=== PATIENT | male | born 1955 | race Caucasian/White ===

== ENCOUNTER → 2017-04-25 09:11 | Outpatient (CLI) | payer OTHER, SELFPAY ==
--- NOTE | 2017-04-25 09:56 | PCM.CR.HP2 ---
CR - History & Physical - General Arrival date:: 04/25/17 Arrival time:: 09:56 Date of Admission: 04/25/17 Referring Physician: Dr. Jonny Dave Primary Diagnosis: PCI w/status post coronary stenting at [facility] - History of Present Cardiac Event Onset Date: Enter Onset Date of cardiac illnesses in Comment field below KS:: Yes - 04/11/2017 PTCA:: Yes - 04/11/2017 Type of Symptoms:: pain in left shoulder, pain, diaphoretic and nausea. Had prior KS in 2007, 2008 and has multiple coronary stents from each event (total 8). Interventions with present event:: LHC w/ status post coronary stenting LUIS x2 to RCA, LUSI to LAD. Were there any complications?: none - Medications Home Medications: Ambulatory Orders Medication Instructions Recorded Aspirin [Aspirin, Baby] 81 mg PO DAILY@0800 04/25/17 Atorvastatin Calcium 80 mg PO 04/25/17 Carvedilol [Coreg] 12.5 mg PO BID 04/25/17 Clopidogrel Bisulfate [Clopidogrel] 75 mg PO 04/25/17 Lisinopril [Zestril] 10 mg PO DAILY 04/25/17 Nitroglycerin [Nitrostat] 0.4 mg SL X1 MDD 3 04/25/17 - Sleep Disorder Evaluation Hx of Sleep Apnea: Yes Do you snore loudly (louder than talking or can be heard through closed doors)?: Yes Do you often feel tired/ fatigued/ sleepy during daytime?: No Has anyone observed you stop breathing during sleep?: Yes History of Hypertension (for STOP score): No STOP Results: Positive Advanced Directives - Advanced Directives Power of Mix Chemist: Yes Living Will: Yes Advance Directives Information Provided: No Advance Directives on File: No - filed with the family mergers and acquisitions attorney DNR Order?:: No Past Medical History - Problems and Co-Morbidities Problems & Co-Morbidities: Smoking, Hypertension, - - hyperchholesterolemia, - Past Cardiac Illness Past Cardiac Illness: Ejection Fraction - 40%, Coronary Artery Disease, Myocardial Infarction - STEMI, Previous PCI w/Stent - 2007, 2008, 2009 5 stents; 04/11/17 LUIS x 2 to RCA, LUIS to LAD; total now of 8 stents - Other Other: Vision/Eye Problems - Cardiology Procedures/Interventions Cardiology Procedures/Interventions: Angioplasty, PCI w/Stenting, Heart Catheterization, Echocardiogram, Stress Test (regular) - 2007 at [place] - Past Surgical History Surgical History: no surgical history, - - colonoscopy, - Family History Summary Family History: Heart Disease: Maternal, Paternal, Sibling, High Cholesterol: Maternal Additional Family History: Mother high cholesterol, HEart surgery brother, heart attack maternal uncle Review of Systems - Review of Systems Hints: Right click = Denies (Slash). Left click = Reports ([place]) Review of Present Symptoms: Reports: Dizziness/Lightheadedness - first week after procedure felt a little lightheaded., Fatigue, Appetite - Normal, Appetite - Special Diet - No fat, no sodium, watching meat and dairy even more than before., Sleep - Normal. Denies: Shortness of Breath at Rest, Sexual Changes Risk Factor Assessment - Chief Complaint Chief Complaint: 62 year old male presents to [facility] rehab today under the care of Dr. Jonny Dave at [facility] following a recent STEMI and coronary stenting. Patient has extensive coroanry artery disease with previous KS and stenting procedures from 2007, 2008, 2009 and recent. - Pulse Pulse Rate: 65 - SpO2 98% room air Pulse Rhythm: Regular - Hypertension How long have you been treated?: no history of past hypertension Blood Pressure Sitting - Left Arm: 94/46 - Stress Stress: Work-related - Blood Cholesterol/Lipids Total Cholesterol (mg/dL) Goal = less than 200 mg/dL: 152 HDL Cholesterol (mg/dL) Goal = less than 40 mg/dL: 32 LDL Cholesterol (mg/dL) Goal = less than 70 mg/dL: 64 Triglycerides (mg/dL) Goal = less than 150 mg/dL: 106 - Diabetes Nutrition Referral for Diabetes: No - Obesity Height: 5 ft 6 in Weight:: 79 kg Weight in Pounds: 174.2 lbs Body Mass Index (BMI): 28.0 Nutritional Referral for Obesity: No - Physical Inactivity Physical Inactivity: None - Risk Stratification Risk Guidelines: Lowest Risk: Risk Factor for Smoking, Risk Factor for Dyslipidemia, Risk Factor for Diabetes, Risk Factor for Hypertension, Risk Factor for Depression, Moderate Risk: Risk Factor for Obesity, Highest Risk: Risk Factor for Sedentary Lifestyle - For Smoking Smoking Risk Guidelines: Smoking Low Risk: None or quit greater than 6 months ago. Smoking Moderate Risk: Smoker or quit 6 months or less ago. Smoking High Risk: Smoker - For Dyslipidemia Dyslipidemia Risk Guidelines: Low Risk: Moderate Risk: High Risk: 15-25% fat 25.1-29% fat >/= 30% fat. <7% sat fat 7-9% sat fat >9% sat fat. <150 mg chol 150-299 mg chol >/= 300 mg chol. LDL <100 LDL 100-129 LDL >/= 130. Chol/HDL ratio <5.0 Chol/HDL ratio 5.0-6.0 Chol/HDL ratio >6.0. Triglycerides <100 Triglycerides 100-149 Triglycerides >/= 150 - For Diabetes Mellitus Diabetes Risk Guidelines: Diabetes Low Risk: HgA1c <6.5% and/or FBG <120. Diabetes Moderate Risk: HgA1c 6.6-7.9% and/or FBG 120-180. Diabetes High Risk: HgA1c >/= 8% and/or FBG >180 - For Obesity/Overweight Obesity/Overweight Risk Guidelines: Obesity Low Risk: BMI <25.0. Obesity Moderate Risk: BMI 25-29.9. Obesity High Risk: BMI >/= 30.0 - For Hypertension Hypertension Risk Guidelines: Hypertension Low Risk: Systolic <120 and Diastolic <80. Hypertension Moderate Risk: Systolic 120-139 and Diastolic 80-89. Hypertension High Risk: Systolic >/= 140 and Diastolic >/= 90 - For Sedentary Lifestyle Sedentary Lifestyle Risk Guidelines: Sedentary Lifestyle Low Risk: >/= 1,500 kcal/week. Sedentary Lifestyle Moderate Risk: 700-1,499 kcal/week. Sedentary Lifestyle High Risk: < 700 kcal/week - For Depression Depression Risk Guidelines: Depression Low Risk: Not clinically depressed. Depression Moderate Risk: Mildly depressed. Depression High Risk: Clinically depressed Social History - Smoking History Smoking Status: Former smoker Years Smokin Packs Smoked per Day: 1 Hx Smoking Cessation Date: 07/12/1992 Hx Tobacco Use: No Hx Smoking Exposure: No - Alcohol Use Alcohol Usage: No - Substance Abuse Hx Substance Use: Yes - marijuana in past - Occupation Occupation (List type of work in comments):: Employed Hours worked per day:: 8 - 8-12 Returned to work on:: 04/30/17 - scheduled to go back - Hobbies, Recreation, Social Activities Hobbies: Sports, Watch TV, Other - cutting splitting wood. Recreational Activities: I am able to engage in most, but not all activities Marital Status - Status Marital Status: - Current Living Arrangements Living Environment:: Spouse - Children How many children do you have?: 3 - grown out of home Do any of your children live nearby?: Yes - 1 lives close to home other near [place] - Safety Do you feel safe in your surroundings?: Yes - Assistance Do you need any assistance at home?: none
--- NOTE | 2017-04-25 10:06 | CR.ITP_ITS ---
Exercise - Initial Assessment - Visit Date of Eval: 04/25/17 - initial evaluation - Stages of Change Stages of Change:: Action - Exercise Prescription Mode:: Treadmill, Rower, Airdyne, NuStep Angina with exercise?: No Target Heart Rate:: 112-120 - Hypertension Do any of the following apply?: Yes Resting Blood Pressure:: 94/60 - Intervention Home Exercise/Activity Goal:: Moderate Exercise 30 min/day x 5 days/wk - Education Goals:: Warm-up, RPE VERONICA Scale, S/S, Safe Exercise, Self-Monitoring - Exercise Program Goals Exercise Program Goals: Aerobic Activity >30 min Nutrition - Initial Assessment - Program Goals Nutrition Program Goals: LDL <70. Total Cholesterol <200. HDL >45. Triglycerides <150. HgbA1C <7%. BMI <25 - Visit Date of Assessment:: 04/25/17 - Stages of Change Stages of Change:: Action - Lipids Total Cholesterol (mg/dL) Goal = less than 200 mg/dL: 152 HDL Cholesterol (mg/dL) Goal = less than 45 mg/dL: 32 LDL Cholesterol (mg/dL) Goal = less than 70 mg/dL: 64 Triglycerides (mg/dL) Goal = less than 150 mg/dL: 106 - Weight Management Height: 5 ft 6 in Weight:: 79.8 kg Body Fat %:: 28.41 - Education Gave educational materials for:: Healthy eating Tobacco - Initial Assessment - Program Goals Tobacco Program Goals: Complete smoking cessation. Attend education classes. Improve Knowledge Test score - Stage of Change Stages of Change:: Action - Learning Barriers Learning Barriers: Vision - reading glasses, Ready to Learn - Family Support Do you have family support?: Yes - Intervention Individual Education/Counseling:: No Education Schedule Given:: Yes - Education Gave educational material for:: Coronary artery disease, Risk factors, Sexuality , Medical compliance, Cardiac A&P, Angina signs & symptoms Psychosocial - Initial Assess - Target Goals Target Goals: Assess presence or absence of depression. Using a valid screening tool, maximizes coping skills. Positive support system - Stages of Change Stages of Change:: Action - Psychosocial Test Tool Used:: HANDS Depression Questionnaire - Intervention PS - Interventions: Yes Attend Stress Management Classes, Yes Uses Stress Management Skills, No Referral to Mental Health, No Referral to [facility] Case Management, No Referral to Physician - Education Gave educational materials for:: Coping techniques, Signs & symptoms of depression, Stress management, Relaxation techniques - Patient/Program Goal Preventative Medication(s):: Aspirin, Clopidogrel, Statin/lipid - Assistive Devices Assistive Devices:: None Fall Risk Assessed:: Yes Patient Health Questionnaire Initial Assessment 1. Little interest or pleasure in doing things: Not at all 2. Feeling down, depressed, or hopeless: Not at all 3. Trouble falling or staying asleep, or sleeping too much: Not at all 4. Feeling tired or having little energy: Several days 5. Poor appetite or overeating: Not at all 6. Feeling bad about yourself -- or that you are a failure or have let yourself or your family down: Not at all 7. Trouble concentrating on things, such as reading the newspaper or watching television: Not at all 8. Moving or speaking so slowly that other people could have noticed. Or the opposite - being so fidgety or restless that you have been moving around a lot more than usual: Not at all 9. Thoughts that you would be better off , or of hurting yourself in some way: Not at all How difficult have these problems made it for you to do your work, take care of things at home, or get along with other people?: Not difficult at all Total Score: 1 Knowledge Test - Check your knowledge Initial The #1 cause of in the [place] each year is:: Heart disease Which of the following is a common treatment for heart disease?: All of the above The arteries that feed the heart are called:: Coronary arteries HDL cholesterol is known as the good cholesterol.: True What disease increases your risk for heart disease?: Pneumonia What food product raises blood cholesterol level the most?: Saturated fat The bad cholesterol in the blood is called:: LDL Hypertension is another word for:: High blood pressure A blood pressure reading of 148/88 is considered normal.: False Exercise will only benefit your health when your heart rate reaches a target level.: False Total Score:: 9 Self-Efficacy Initial Assessment We would like to know how confident you are in doing certain activities. Please select your confidence level for:: Select your confidence level for the following using the scale 1-10 where 1 is not at all confident and 10 is totally confident. Your score is the average of all 6 responses. Fatigue: How confident are you that you can keep the fatigue caused by your disease from interfering with the things you want to do? Select Number: 9 Physical Discomfort or Pain: How confident are you that you can keep the physical discomfort or pain of your disease from interfering with the things you want to do? Select Number: 9 Emotional Distress: How confident are you that you can keep the emotional distress caused by your disease from interfering with the things you want to do? Select Number: 9 Other Symptoms or Health Problems: How confident are you that you can keep other symptoms or health problems from interfering with the things you want to do? Select Number: 9 Different Tasks and Activities: How confident are you that you can do the different tasks and activities needed to manage your health condition so as to reduce your need to see a doctor? Select Number: 9 Medication: How confident are you that you can do things other than just taking medication to reduce how much your illness affects your everyday life? Select Number: 9 Total Score:: 9 Nutrition Survey - Nutrition Survey Instructions Scoring Instructions: Scoring is as follows: Yes = 1 points. No = 0 point. Patient score that is >/=12 is considered to be at potential nutritional risk and could benefit from a referral to a registered dietitian. - Nutrition Survey Initial Have you lost >10 lbs over the past 2 months without trying?: No Are you following a special diet at home for diabetes, low fat, or low salt?: Yes Are you interested in meeting with a dietitian for help understanding your diet? : No Do you eat less than 3 meals a day?: No Do you eat fatty meats (oglesby, sausage, ribs, etc), fried foods, desserts, large amounts of salad dressings, margarine, butter, or cheese most days?: Yes Do you have food allergies? [Enter types in comment field]: No Do you eat in restaurants more than 3 times a week?: No Do you season food with salt, seasoning salt, or garlic salt?: No Do you used canned, boxed, frozen meals, or soups, seasoning packets?: No Total Score:: 2 Cardiac Rehabilitation Goals - Cardiac Rehab Goals Cardiac Rehabilitation Goals: 1. Maintain the individual as the primary focus of care. 2. To improve the patient's quality of life. 3. Identification of cardiac risk factors and provide cardiac risk factor management. 4. Enhance the psychosocial status of the patient. 5. Reconditioning enough to allow the patient to resume customary activities. 6. Control symptoms of cardiac disease - Scale Scale for measuring improvement of personal goals: Enter appropriate number in Comments. 2 = Unchanged. 3 = Slightly Better. 4 = Moderate Improvement. 5 = Met my Goal Initial Assessment Personal Goals: 30-day Re-assessment: Improve energy level, Get back to work, or to resume activities faster, Improve muscle strength and endurance, Improve diet and eating habits (eat healthier), Control risk factors (learn risk factor modification)
--- NOTE | 2017-04-25 10:09 | CR.HP_ITS ---
CR - History & Physical - General Arrival date:: 04/25/17 Arrival time:: 09:56 Date of Admission: 04/25/17 Referring Physician: Dr. Jonny Dave Primary Diagnosis: PCI w/status post coronary stenting at [facility] - History of Present Cardiac Event Onset Date: Enter Onset Date of cardiac illnesses in Comment field below CA:: Yes - 04/11/2017 PTCA:: Yes - 04/11/2017 Type of Symptoms:: pain in left shoulder, pain, diaphoretic and nausea. Had prior CA in 2007, 2008 and has multiple coronary stents from each event (total 8 ). Interventions with present event:: LHC w/ status post coronary stenting LUIS x2 to RCA, LUIS to LAD. Were there any complications?: none - Medications Home Medications: Ambulatory Orders Medication Instructions Recorded Aspirin [Aspirin, Baby] 81 mg PO DAILY@0800 04/25/17 Atorvastatin Calcium 80 mg PO 04/25/17 Carvedilol [Coreg] 12.5 mg PO BID 04/25/17 Clopidogrel Bisulfate [Clopidogrel] 75 mg PO 04/25/17 Lisinopril [Zestril] 10 mg PO DAILY 04/25/17 Nitroglycerin [Nitrostat] 0.4 mg SL X1 MDD 3 04/25/17 - Sleep Disorder Evaluation Hx of Sleep Apnea: Yes Do you snore loudly (louder than talking or can be heard through closed doors)? : Yes Do you often feel tired/ fatigued/ sleepy during daytime?: No Has anyone observed you stop breathing during sleep?: Yes History of Hypertension (for STOP score): No STOP Results: Positive Advanced Directives - Advanced Directives Power of Telemarketing Agent: Yes Living Will: Yes Advance Directives Information Provided: No Advance Directives on File: No - filed with the family finance attorney DNR Order?:: No Past Medical History - Problems and Co-Morbidities Problems & Co-Morbidities: Smoking, Hypertension, - - hyperchholesterolemia, - Past Cardiac Illness Past Cardiac Illness: Ejection Fraction - 40%, Coronary Artery Disease, Myocardial Infarction - STEMI, Previous PCI w/Stent - 2007, 2008, 2009 5 stents ; 04/11/17 LUIS x 2 to RCA, LUIS to LAD; total now of 8 stents - Other Other: Vision/Eye Problems - Cardiology Procedures/Interventions Cardiology Procedures/Interventions: Angioplasty, PCI w/Stenting, Heart Catheterization, Echocardiogram, Stress Test (regular) - 2007 at [place] - Past Surgical History Surgical History: no surgical history, - - colonoscopy, - Family History Summary Family History: Heart Disease: Maternal, Paternal, Sibling, High Cholesterol: Maternal Additional Family History: Mother high cholesterol, HEart surgery brother, heart attack maternal uncle Review of Systems - Review of Systems Hints: Right click = Denies (Slash). Left click = Reports ([place]) Review of Present Symptoms: Reports: Dizziness/Lightheadedness - first week after procedure felt a little lightheaded., Fatigue, Appetite - Normal, Appetite - Special Diet - No fat, no sodium, watching meat and dairy even more than before., Sleep - Normal. Denies: Shortness of Breath at Rest, Sexual Changes Risk Factor Assessment - Chief Complaint Chief Complaint: 62 year old male presents to [facility] rehab today under the care of Dr. Jonny Dave at [facility] following a recent STEMI and coronary stenting. Patient has extensive coroanry artery disease with previous CA and stenting procedures from 2007, 2008, 2009 and recent. - Pulse Pulse Rate: 65 - SpO2 98% room air Pulse Rhythm: Regular - Hypertension How long have you been treated?: no history of past hypertension Blood Pressure Sitting - Left Arm: 94/46 - Stress Stress: Work-related - Blood Cholesterol/Lipids Total Cholesterol (mg/dL) Goal = less than 200 mg/dL: 152 HDL Cholesterol (mg/dL) Goal = less than 40 mg/dL: 32 LDL Cholesterol (mg/dL) Goal = less than 70 mg/dL: 64 Triglycerides (mg/dL) Goal = less than 150 mg/dL: 106 - Diabetes Nutrition Referral for Diabetes: No - Obesity Height: 5 ft 6 in Weight:: 79 kg Weight in Pounds: 174.2 lbs Body Mass Index (BMI): 28.0 Nutritional Referral for Obesity: No - Physical Inactivity Physical Inactivity: None - Risk Stratification Risk Guidelines: Lowest Risk: Risk Factor for Smoking, Risk Factor for Dyslipidemia, Risk Factor for Diabetes, Risk Factor for Hypertension, Risk Factor for Depression, Moderate Risk: Risk Factor for Obesity, Highest Risk: Risk Factor for Sedentary Lifestyle - For Smoking Smoking Risk Guidelines: Smoking Low Risk: None or quit greater than 6 months ago. Smoking Moderate Risk: Smoker or quit 6 months or less ago. Smoking High Risk: Smoker - For Dyslipidemia Dyslipidemia Risk Guidelines: Low Risk: Moderate Risk: High Risk: 15-25% fat 25.1-29% fat >/= 30% fat. <7% sat fat 7-9% sat fat >9% sat fat. <150 mg chol 150-299 mg chol >/= 300 mg chol. LDL <100 LDL 100-129 LDL >/= 130. Chol/HDL ratio <5.0 Chol/HDL ratio 5.0-6.0 Chol/HDL ratio >6.0. Triglycerides <100 Triglycerides 100-149 Triglycerides >/= 150 - For Diabetes Mellitus Diabetes Risk Guidelines: Diabetes Low Risk: HgA1c <6.5% and/or FBG <120. Diabetes Moderate Risk: HgA1c 6.6-7.9% and/or FBG 120-180. Diabetes High Risk: HgA1c >/= 8% and/or FBG >180 - For Obesity/Overweight Obesity/Overweight Risk Guidelines: Obesity Low Risk: BMI <25.0. Obesity Moderate Risk: BMI 25-29.9. Obesity High Risk: BMI >/= 30.0 - For Hypertension Hypertension Risk Guidelines: Hypertension Low Risk: Systolic <120 and Diastolic <80. Hypertension Moderate Risk: Systolic 120-139 and Diastolic 80-89. Hypertension High Risk: Systolic >/= 140 and Diastolic >/= 90 - For Sedentary Lifestyle Sedentary Lifestyle Risk Guidelines: Sedentary Lifestyle Low Risk: >/= 1 ,500 kcal/week. Sedentary Lifestyle Moderate Risk: 700-1,499 kcal/week. Sedentary Lifestyle High Risk: < 700 kcal/week - For Depression Depression Risk Guidelines: Depression Low Risk: Not clinically depressed. Depression Moderate Risk: Mildly depressed. Depression High Risk: Clinically depressed Social History - Smoking History Smoking Status: Former smoker Years Smokin Packs Smoked per Day: 1 Hx Smoking Cessation Date: 07/12/1992 Hx Tobacco Use: No Hx Smoking Exposure: No - Alcohol Use Alcohol Usage: No - Substance Abuse Hx Substance Use: Yes - marijuana in past - Occupation Occupation (List type of work in comments):: Employed Hours worked per day:: 8 - 8-12 Returned to work on:: 04/30/17 - scheduled to go back - Hobbies, Recreation, Social Activities Hobbies: Sports, Watch TV, Other - cutting splitting wood. Recreational Activities: I am able to engage in most, but not all activities Marital Status - Status Marital Status: - Current Living Arrangements Living Environment:: Spouse - Children How many children do you have?: 3 - grown out of home Do any of your children live nearby?: Yes - 1 lives close to home other near [place] - Safety Do you feel safe in your surroundings?: Yes - Assistance Do you need any assistance at home?: none
[2017-04-25 11:09] VITALS: BP 94/46; PULSE 65; BMI 28.0
[2017-04-25 11:13] VITALS: BP 94/60
== END ==
PROVIDERS: Family Provider Family Medicine; PCP Family Medicine; Visit Provider Internal Medicine Cardiovascular Disease
DX: I25.2 Old myocardial infarction (principal); Z95.5 Presence of coronary angioplasty implant and graft

== ENCOUNTER 2017-05-16 10:15 | Outpatient (RCR) | payer OTHER, SELFPAY ==
[2017-05-16 13:49] VITALS: BP 120/64; BP 146/70
--- NOTE | 2017-05-16 13:50 | CR.ITP_ITS ---
Exercise - Initial Assessment - Stages of Change Stages of Change:: Action - Exercise Prescription Mode:: Treadmill, Rower, Airdyne, NuStep Angina with exercise?: No Target Heart Rate:: 112-120 - Hypertension Do any of the following apply?: Yes - Intervention Home Exercise/Activity Goal:: Moderate Exercise 30 min/day x 5 days/wk - Education Goals:: Warm-up, RPE VERONICA Scale, S/S, Safe Exercise, Self-Monitoring - Exercise Program Goals Exercise Program Goals: Aerobic Activity >30 min Exercise - 30-day Assessment - Visit Date of Eval: 05/16/17 Session #:: 7 - Stages of Change Stages of Change:: Action - Exercise Prescription Mode:: Treadmill, Rower, Airdyne, NuStep Frequency (x/week): 3 Duration:: 30 METs - Progression: 0.5-1 MET as tolerated: 3.5 Target Heart Rate:: 112-120 max HR 121 - Hypertension Resting Blood Pressure:: 120/64 Peak Exercise Blood Pressure:: 146/70 Medication Changes:: No - Intervention Home Exercise/Activity Goal:: Sitting Time <3 hrs/day - Education Goals:: Warm-up, RPE VERONICA Scale, S/S, Safe Exercise, Self-Monitoring - Exercise Program Goals Exercise Program Goals: Aerobic Activity >30 min Exercise - Final/Discharge - Hypertension Do any of the following apply?: Yes Nutrition - Initial Assessment - Program Goals Nutrition Program Goals: LDL <70. Total Cholesterol <200. HDL >45. Triglycerides <150. HgbA1C <7%. BMI <25 - Stages of Change Stages of Change:: Action - Lipids Total Cholesterol (mg/dL) Goal = less than 200 mg/dL: 152 HDL Cholesterol (mg/dL) Goal = less than 45 mg/dL: 32 LDL Cholesterol (mg/dL) Goal = less than 70 mg/dL: 64 Triglycerides (mg/dL) Goal = less than 150 mg/dL: 106 - Weight Management Body Fat %:: 28.41 Total Score:: 2 - Education Gave educational materials for:: Healthy eating Nutrition - 30-Day Assessment - Program Goals Nutrition Program Goals: LDL <70. Total Cholesterol <200. HDL >45. Triglycerides <150. HgbA1C <7%. BMI <25 - Visit Date of Eval: 05/16/17 - session # 7 - Stages of Change Stages of Change:: Action - Lipids Has the patient seen the dietitian?: No - Diabetes Diabetes:: No Insulin: No Non-Insulin Dependent?: No - Weight Management Weight:: 77.564 kg - Intervention Referral to dietitian:: No Referral to Diabetic Clinic:: No Will attend diet classes:: Yes - Education Attended class for:: Healthy eating Nutrition - 60-Day Assessment - Program Goals Nutrition Program Goals: LDL <70. Total Cholesterol <200. HDL >45. Triglycerides <150. HgbA1C <7%. BMI <25 - Education Attended class for:: Healthy eating Nutrition - 90-Day Assessment - Program Goals Nutrition Program Goals: LDL <70. Total Cholesterol <200. HDL >45. Triglycerides <150. HgbA1C <7%. BMI <25 - Education Attended class for:: Healthy eating Nutrition - Final Assessment - Program Goals Nutrition Program Goals: LDL <70. Total Cholesterol <200. HDL >45. Triglycerides <150. HgbA1C <7%. BMI <25 - Weight Management Body Fat %:: 28.41 Total Score:: 2 Tobacco - Initial Assessment - Program Goals Tobacco Program Goals: Complete smoking cessation. Attend education classes. Improve Knowledge Test score - Stage of Change Stages of Change:: Action - Learning Barriers Learning Barriers: Vision - reading glasses, Ready to Learn Total Score:: 9 - Family Support Do you have family support?: Yes - Intervention Individual Education/Counseling:: No Education Schedule Given:: Yes - Education Gave educational material for:: Coronary artery disease, Risk factors, Sexuality , Medical compliance, Cardiac A&P, Angina signs & symptoms Tobacco - 30-Day Assessment - Program Goals Tobacco Program Goals: Complete smoking cessation. Attend education classes. Improve Knowledge Test score - Stage of Change Stages of Change:: Action - Learning Barriers Learning Barriers: Participates in education - Family Support Do you have family support?: Yes - Tobacco Use Tobacco Use: Non-smoker - Intervention Smoking Cessation Referral:: No Individual Education/Counseling:: No Education Schedule Given:: Yes - Education Attended class for:: Coronary artery disease, Risk factors, Sexuality, Medical compliance, Cardiac A&P, Angina signs & symptoms Tobacco - 60-Day Assessment - Program Goals Tobacco Program Goals: Complete smoking cessation. Attend education classes. Improve Knowledge Test score - Family Support Do you have family support?: Yes - Intervention Individual Education/Counseling:: No Education Schedule Given:: Yes - Education Attended class for:: Coronary artery disease, Risk factors, Sexuality, Medical compliance, Cardiac A&P, Angina signs & symptoms Tobacco - 90-Day Assessment - Program Goals Tobacco Program Goals: Complete smoking cessation. Attend education classes. Improve Knowledge Test score - Family Support Do you have family support?: Yes - Intervention Individual Education/Counseling:: No Education Schedule Given:: Yes - Education Attended class for:: Coronary artery disease, Risk factors, Sexuality, Medical compliance, Cardiac A&P, Angina signs & symptoms Tobacco - Final Assessment - Program Goals Tobacco Program Goals: Complete smoking cessation. Attend education classes. Improve Knowledge Test score - Learning Barriers Cardiac Knowledge Test Score:: 9 - Family Support Do you have family support?: Yes - Intervention Individual Education/Counseling:: No Education Schedule Given:: Yes Psychosocial - Initial Assess - Target Goals Target Goals: Assess presence or absence of depression. Using a valid screening tool, maximizes coping skills. Positive support system - Stages of Change Stages of Change:: Action - Psychosocial Test Tool Used:: HANDS Depression Questionnaire Self-Efficacy Score:: 9 - Intervention PS - Interventions: Yes Attend Stress Management Classes, Yes Uses Stress Management Skills, No Referral to Mental Health, No Referral to [facility] Case Management, No Referral to Physician - Education Gave educational materials for:: Coping techniques, Signs & symptoms of depression, Stress management, Relaxation techniques - Patient/Program Goal Preventative Medication(s):: Aspirin, Clopidogrel, Statin/lipid - Assistive Devices Assistive Devices:: None Fall Risk Assessed:: Yes Psychosocial - 30-Day Assess - Target Goals Target Goals: Assess presence or absence of depression. Using a valid screening tool, maximizes coping skills. Positive support system - Stages of Change Stages of Change:: Action - Psychosocial Test Tool Used:: HANDS Depression Questionnaire Self-Efficacy Score:: 9 - Intervention PS - Interventions: Yes Attend Stress Management Classes, No Referral to Mental Health, No Referral to [facility] Case Management, No Referral to Physician, No Uses Stress Management Skills - Education Attended classes for:: Coping techniques, Signs & symptoms of depression, Stress management, Relaxation techniques - Patient/Program Goal Preventative Medication(s):: Aspirin, Clopidogrel, Statin/lipid - Assistive Devices Assistive Devices:: None Fall Risk Assessed:: Yes Psychosocial - 60-Day Assess - Target Goals Target Goals: Assess presence or absence of depression. Using a valid screening tool, maximizes coping skills. Positive support system - Psychosocial Test Tool Used:: HANDS Depression Questionnaire Self-Efficacy Score:: 9 - Education Attended classes for:: Coping techniques, Signs & symptoms of depression, Stress management, Relaxation techniques - Patient/Program Goal Preventative Medication(s):: Aspirin, Clopidogrel, Statin/lipid - Assistive Devices Assistive Devices:: None Fall Risk Assessed:: Yes Psychosocial - 90-Day Assess - Target Goals Target Goals: Assess presence or absence of depression. Using a valid screening tool, maximizes coping skills. Positive support system - Psychosocial Test Tool Used:: HANDS Depression Questionnaire Self-Efficacy Score:: 9 - Education Attended classes for:: Coping techniques, Signs & symptoms of depression, Stress management, Relaxation techniques - Patient/Program Goal Preventative Medication(s):: Aspirin, Clopidogrel, Statin/lipid - Assistive Devices Assistive Devices:: None Fall Risk Assessed:: Yes Psychosocial - Final Assessmen - Target Goals Target Goals: Assess presence or absence of depression. Using a valid screening tool, maximizes coping skills. Positive support system - Psychosocial Test Tool Used:: HANDS Depression Questionnaire Self-Efficacy Score:: 9 - Patient/Program Goal Preventative Medication(s):: Aspirin, Clopidogrel, Statin/lipid - Assistive Devices Assistive Devices:: None Fall Risk Assessed:: Yes Patient Health Questionnaire 30-Day Re-eval Assessment 1. Little interest or pleasure in doing things: Not at all 2. Feeling down, depressed, or hopeless: Not at all 3. Trouble falling or staying asleep, or sleeping too much: Not at all 4. Feeling tired or having little energy: Not at all 5. Poor appetite or overeating: Not at all 6. Feeling bad about yourself -- or that you are a failure or have let yourself or your family down: Not at all 7. Trouble concentrating on things, such as reading the newspaper or watching television: Not at all 8. Moving or speaking so slowly that other people could have noticed. Or the opposite - being so fidgety or restless that you have been moving around a lot more than usual: Not at all 9. Thoughts that you would be better off , or of hurting yourself in some way: Not at all How difficult have these problems made it for you to do your work, take care of things at home, or get along with other people?: Not difficult at all Total Score: 0 Self-Efficacy 30-Day Re-eval Assessment We would like to know how confident you are in doing certain activities. Please select your confidence level for:: Select your confidence level for the following using the scale 1-10 where 1 is not at all confident and 10 is totally confident. Your score is the average of all 6 responses. Fatigue: How confident are you that you can keep the fatigue caused by your disease from interfering with the things you want to do? Select Number: 9 Physical Discomfort or Pain: How confident are you that you can keep the physical discomfort or pain of your disease from interfering with the things you want to do? Select Number: 9 Emotional Distress: How confident are you that you can keep the emotional distress caused by your disease from interfering with the things you want to do? Select Number: 9 Other Symptoms or Health Problems: How confident are you that you can keep other symptoms or health problems from interfering with the things you want to do? Select Number: 10 Different Tasks and Activities: How confident are you that you can do the different tasks and activities needed to manage your health condition so as to reduce your need to see a doctor? Select Number: 10 Medication: How confident are you that you can do things other than just taking medication to reduce how much your illness affects your everyday life? Select Number: 10 Total Score:: 9
== END 2017-05-16 23:59 ==
LOC: CR 10:15
PROVIDERS: Family Provider Family Medicine; PCP Family Medicine; Visit Provider Internal Medicine Cardiovascular Disease
DX: Z95.5 Presence of coronary angioplasty implant and graft (principal)
CPT/HCPCS: 93798

== ENCOUNTER 2017-06-13 10:15 | Outpatient (RCR) | payer OTHER, SELFPAY ==
[2017-04-25 11:09] VITALS: BMI 28.0
[2017-05-17 01:06] VITALS: BP 120/64; BP 146/70
--- NOTE | 2017-06-12 10:19 | PCM.CR.ITP ---
Exercise - Initial Assessment - Stages of Change Stages of Change:: Action - Exercise Prescription Mode:: Treadmill, Rower, Airdyne, NuStep Angina with exercise?: No Target Heart Rate:: 112-120 - Hypertension Do any of the following apply?: Yes - Intervention Home Exercise/Activity Goal:: Moderate Exercise 30 min/day x 5 days/wk - Education Goals:: Warm-up, RPE VERONICA Scale, S/S, Safe Exercise, Self-Monitoring - Exercise Program Goals Exercise Program Goals: Aerobic Activity >30 min Exercise - 30-day Assessment - Visit Date of Eval: 05/16/17 - session # 7 - Stages of Change Stages of Change:: Action - Exercise Prescription Mode:: Treadmill, Rower, Airdyne, NuStep Frequency (x/week): 3 Duration:: 30 METs - Progression: 0.5-1 MET as tolerated: 3.5 Target Heart Rate:: 112-120 max HR 121 - Intervention Home Exercise/Activity Goal:: Sitting Time <3 hrs/day - Education Goals:: Warm-up, RPE VEROINCA Scale, S/S, Safe Exercise, Self-Monitoring - Exercise Program Goals Exercise Program Goals: Aerobic Activity >30 min Exercise - 60-Day Assessment - Visit Date of Eval: 06/12/17 Session #:: 16 - Stages of Change Stages of Change:: Action - Exercise Prescription Mode:: Treadmill, Rower, Airdyne, NuStep Frequency (x/week): 3 Duration:: 30 METs: 5.5 Target Heart Rate:: 120-128 w max HR 122 - Hypertension Resting Blood Pressure:: 102/52 Peak Exercise Blood Pressure:: 162/70 Medication Changes:: No - Intervention Home Exercise/Activity Goal:: Moderate Exercise 30 min/day x 5 days/wk - Education Goals:: Warm-up, RPE VERONICA Scale, S/S, Safe Exercise, Self-Monitoring - Exercise Program Goals Exercise Program Goals: Aerobic Activity >30 min Exercise - Final/Discharge - Hypertension Do any of the following apply?: Yes Nutrition - Initial Assessment - Program Goals Nutrition Program Goals: LDL <70. Total Cholesterol <200. HDL >45. Triglycerides <150. HgbA1C <7%. BMI <25 - Stages of Change Stages of Change:: Action - Lipids Total Cholesterol (mg/dL) Goal = less than 200 mg/dL: 152 HDL Cholesterol (mg/dL) Goal = less than 45 mg/dL: 32 LDL Cholesterol (mg/dL) Goal = less than 70 mg/dL: 64 Triglycerides (mg/dL) Goal = less than 150 mg/dL: 106 - Diabetes Diabetes:: No Non-Insulin Dependent?: No - Weight Management Body Fat %:: 28.41 Total Score:: 2 - Intervention Referral to dietitian:: No Referral to Diabetic Clinic:: No Will attend diet classes:: Yes - Education Gave educational materials for:: Healthy eating Nutrition - 30-Day Assessment - Program Goals Nutrition Program Goals: LDL <70. Total Cholesterol <200. HDL >45. Triglycerides <150. HgbA1C <7%. BMI <25 - Stages of Change Stages of Change:: Action - Lipids Has the patient seen the dietitian?: No - Diabetes Diabetes:: No Insulin: No Non-Insulin Dependent?: No - Intervention Referral to dietitian:: No Referral to Diabetic Clinic:: No Will attend diet classes:: Yes - Education Attended class for:: Healthy eating Nutrition - 60-Day Assessment - Program Goals Nutrition Program Goals: LDL <70. Total Cholesterol <200. HDL >45. Triglycerides <150. HgbA1C <7%. BMI <25 - Visit Date of Eval: 06/12/17 - Stages of Change Stages of Change:: Action - Lipids Has the patient seen the dietitian?: No - Diabetes Diabetes:: No Insulin: No Non-Insulin Dependent?: No - Weight Management Weight:: 77.111 kg - Intervention Referral to dietitian:: No Referral to Diabetic Clinic:: No Will attend diet classes:: Yes - Education Attended class for:: Healthy eating Nutrition - 90-Day Assessment - Program Goals Nutrition Program Goals: LDL <70. Total Cholesterol <200. HDL >45. Triglycerides <150. HgbA1C <7%. BMI <25 - Lipids Has the patient seen the dietitian?: No - Diabetes Diabetes:: No Insulin: No Non-Insulin Dependent?: No - Intervention Referral to dietitian:: No Referral to Diabetic Clinic:: No Will attend diet classes:: Yes - Education Attended class for:: Healthy eating Nutrition - Final Assessment - Program Goals Nutrition Program Goals: LDL <70. Total Cholesterol <200. HDL >45. Triglycerides <150. HgbA1C <7%. BMI <25 - Diabetes Diabetes:: No Insulin: No Non-Insulin Dependent?: No - Weight Management Body Fat %:: 28.41 Total Score:: 2 - Intervention Referral to dietitian:: No Referral to Diabetic Clinic:: No Will attend diet classes:: Yes Tobacco - Initial Assessment - Program Goals Tobacco Program Goals: Complete smoking cessation. Attend education classes. Improve Knowledge Test score - Stage of Change Stages of Change:: Action - Learning Barriers Learning Barriers: Vision - reading glasses, Ready to Learn Total Score:: 9 - Family Support Do you have family support?: Yes - Intervention Smoking Cessation Referral:: No Individual Education/Counseling:: No Education Schedule Given:: Yes - Education Gave educational material for:: Coronary artery disease, Risk factors, Sexuality, Medical compliance, Cardiac A&P, Angina signs & symptoms Tobacco - 30-Day Assessment - Program Goals Tobacco Program Goals: Complete smoking cessation. Attend education classes. Improve Knowledge Test score - Stage of Change Stages of Change:: Action - Learning Barriers Learning Barriers: Participates in education - Family Support Do you have family support?: Yes - Tobacco Use Tobacco Use: Non-smoker - Intervention Smoking Cessation Referral:: No Individual Education/Counseling:: No Education Schedule Given:: Yes - Education Attended class for:: Coronary artery disease, Risk factors, Sexuality, Medical compliance, Cardiac A&P, Angina signs & symptoms Tobacco - 60-Day Assessment - Program Goals Tobacco Program Goals: Complete smoking cessation. Attend education classes. Improve Knowledge Test score - Stage of Change Stages of Change:: Action - Learning Barriers Learning Barriers: Participates in education - Family Support Do you have family support?: Yes - Tobacco Use Tobacco Use: Non-smoker Do you use smokeless tobacco?: No - Intervention Smoking Cessation Referral:: No Individual Education/Counseling:: No Education Schedule Given:: Yes - Education Attended class for:: Coronary artery disease, Risk factors, Sexuality, Medical compliance, Cardiac A&P, Angina signs & symptoms Tobacco - 90-Day Assessment - Program Goals Tobacco Program Goals: Complete smoking cessation. Attend education classes. Improve Knowledge Test score - Family Support Do you have family support?: Yes - Tobacco Use Tobacco Use: Non-smoker - Intervention Smoking Cessation Referral:: No Individual Education/Counseling:: No Education Schedule Given:: Yes - Education Attended class for:: Coronary artery disease, Risk factors, Sexuality, Medical compliance, Cardiac A&P, Angina signs & symptoms Tobacco - Final Assessment - Program Goals Tobacco Program Goals: Complete smoking cessation. Attend education classes. Improve Knowledge Test score - Learning Barriers Cardiac Knowledge Test Score:: 9 - Family Support Do you have family support?: Yes - Tobacco Use Tobacco Use: Non-smoker - Intervention Smoking Cessation Referral:: No Individual Education/Counseling:: No Education Schedule Given:: Yes Psychosocial - Initial Assess - Target Goals Target Goals: Assess presence or absence of depression. Using a valid screening tool, maximizes coping skills. Positive support system - Stages of Change Stages of Change:: Action - Psychosocial Test Tool Used:: HANDS Depression Questionnaire Self-Efficacy Score:: 9 - Education Gave educational materials for:: Coping techniques, Signs & symptoms of depression, Stress management, Relaxation techniques - Patient/Program Goal Preventative Medication(s):: Aspirin, Clopidogrel, Statin/lipid - Assistive Devices Assistive Devices:: None Fall Risk Assessed:: Yes Psychosocial - 30-Day Assess - Target Goals Target Goals: Assess presence or absence of depression. Using a valid screening tool, maximizes coping skills. Positive support system - Stages of Change Stages of Change:: Action - Psychosocial Test Tool Used:: HANDS Depression Questionnaire Self-Efficacy Score:: 9 - Patient/Program Goal Preventative Medication(s):: Aspirin, Clopidogrel, Statin/lipid - Assistive Devices Assistive Devices:: None Fall Risk Assessed:: Yes Psychosocial - 60-Day Assess - Target Goals Target Goals: Assess presence or absence of depression. Using a valid screening tool, maximizes coping skills. Positive support system - Stages of Change Stages of Change:: Action - Psychosocial Test Tool Used:: HANDS Depression Questionnaire Self-Efficacy Score:: 9 - Intervention PS - Interventions: Yes Attend Stress Management Classes, Yes Uses Stress Management Skills, No Referral to Mental Health, No Referral to [facility] Case Management, No Referral to Physician - Education Attended classes for:: Coping techniques, Signs & symptoms of depression, Stress management, Relaxation techniques - Patient/Program Goal Preventative Medication(s):: Aspirin, Clopidogrel, Statin/lipid - Assistive Devices Assistive Devices:: None Fall Risk Assessed:: Yes Psychosocial - 90-Day Assess - Target Goals Target Goals: Assess presence or absence of depression. Using a valid screening tool, maximizes coping skills. Positive support system - Psychosocial Test Tool Used:: HANDS Depression Questionnaire Self-Efficacy Score:: 9 - Education Attended classes for:: Coping techniques, Signs & symptoms of depression, Stress management, Relaxation techniques - Patient/Program Goal Preventative Medication(s):: Aspirin, Clopidogrel, Statin/lipid - Assistive Devices Assistive Devices:: None Fall Risk Assessed:: Yes Psychosocial - Final Assessmen - Target Goals Target Goals: Assess presence or absence of depression. Using a valid screening tool, maximizes coping skills. Positive support system - Psychosocial Test Tool Used:: HANDS Depression Questionnaire Self-Efficacy Score:: 9 - Patient/Program Goal Preventative Medication(s):: Aspirin, Clopidogrel, Statin/lipid - Assistive Devices Assistive Devices:: None Fall Risk Assessed:: Yes Patient Health Questionnaire 60-Day Re-eval Assessment 1. Little interest or pleasure in doing things: Not at all 2. Feeling down, depressed, or hopeless: Not at all 3. Trouble falling or staying asleep, or sleeping too much: Not at all 4. Feeling tired or having little energy: Not at all 5. Poor appetite or overeating: Not at all 6. Feeling bad about yourself -- or that you are a failure or have let yourself or your family down: Not at all 7. Trouble concentrating on things, such as reading the newspaper or watching television: Not at all 8. Moving or speaking so slowly that other people could have noticed. Or the opposite - being so fidgety or restless that you have been moving around a lot more than usual: Not at all 9. Thoughts that you would be better off , or of hurting yourself in some way: Not at all Total Score: 0 Self-Efficacy 60-Day Re-eval Assessment We would like to know how confident you are in doing certain activities. Please select your confidence level for:: Select your confidence level for the following using the scale 1-10 where 1 is not at all confident and 10 is totally confident. Your score is the average of all 6 responses. Fatigue: How confident are you that you can keep the fatigue caused by your disease from interfering with the things you want to do? Select Number: 9 Physical Discomfort or Pain: How confident are you that you can keep the physical discomfort or pain of your disease from interfering with the things you want to do? Select Number: 9 Emotional Distress: How confident are you that you can keep the emotional distress caused by your disease from interfering with the things you want to do? Select Number: 10 Other Symptoms or Health Problems: How confident are you that you can keep other symptoms or health problems from interfering with the things you want to do? Select Number: 10 Different Tasks and Activities: How confident are you that you can do the different tasks and activities needed to manage your health condition so as to reduce your need to see a doctor? Select Number: 10 Medication: How confident are you that you can do things other than just taking medication to reduce how much your illness affects your everyday life? Select Number: 10 Total Score:: 9
[2017-06-12 10:21] VITALS: BP 102/52; BP 162/70
== END 2017-06-13 23:59 ==
LOC: CR 10:15
PROVIDERS: Family Provider Family Medicine; PCP Family Medicine; Visit Provider Internal Medicine Cardiovascular Disease
DX: Z95.5 Presence of coronary angioplasty implant and graft (principal)
CPT/HCPCS: 93798

== ENCOUNTER 2017-06-29 10:15 | Outpatient (RCR) | payer OTHER, SELFPAY ==
[2017-06-14 00:51] VITALS: BP 102/52; BP 162/70
[2017-07-09 14:44] VITALS: BP 110/70; BP 148/80
--- NOTE | 2017-07-09 14:45 | CR.ITP_ITS ---
Exercise - Initial Assessment - Stages of Change Stages of Change:: Action - Exercise Prescription Mode:: Treadmill, Rower, Airdyne, NuStep Angina with exercise?: No Target Heart Rate:: 112-120 - Hypertension Do any of the following apply?: Yes - Intervention Home Exercise/Activity Goal:: Moderate Exercise 30 min/day x 5 days/wk - Education Goals:: Warm-up, RPE VERONICA Scale, S/S, Safe Exercise, Self-Monitoring - Exercise Program Goals Exercise Program Goals: Aerobic Activity >30 min Exercise - 30-day Assessment - Stages of Change Stages of Change:: Action - Exercise Prescription Mode:: Treadmill, Rower, Airdyne, NuStep Frequency (x/week): 3 Duration:: 30 METs - Progression: 0.5-1 MET as tolerated: 3.5 Target Heart Rate:: 112-120 max HR 121 - Intervention Home Exercise/Activity Goal:: Sitting Time <3 hrs/day - Education Goals:: Warm-up, RPE VERONICA Scale, S/S, Safe Exercise, Self-Monitoring - Exercise Program Goals Exercise Program Goals: Aerobic Activity >30 min Exercise - 60-Day Assessment - Visit Date of Eval: 06/12/17 - Stages of Change Stages of Change:: Action - Exercise Prescription Mode:: Treadmill, Rower, Airdyne, NuStep Frequency (x/week): 3 Duration:: 30 METs: 5.5 Target Heart Rate:: 120-128 w max HR 122 - Hypertension Medication Changes:: No - Intervention Home Exercise/Activity Goal:: Moderate Exercise 30 min/day x 5 days/wk - Education Goals:: Warm-up, RPE VERONICA Scale, S/S, Safe Exercise, Self-Monitoring - Exercise Program Goals Exercise Program Goals: Aerobic Activity >30 min Exercise - 90-Day Assessment - Visit Date of Eval: 06/12/17 - Stages of Change Stages of Change:: Action - Exercise Prescription Mode:: Treadmill, Rower, Airdyne, NuStep Frequency (x/week): 3 Duration:: 30 METs: 5.5 Target Heart Rate:: 120-128 w max HR 122 - Hypertension Medication Changes:: No - Intervention Home Exercise/Activity Goal:: Moderate Exercise 30 min/day x 5 days/wk - Education Goals:: Warm-up, RPE VERONICA Scale, S/S, Safe Exercise, Self-Monitoring - Exercise Program Goals Exercise Program Goals: Aerobic Activity >30 min Exercise - Final/Discharge - Visit Date of Eval: 07/09/17 - 06/04/2017-06/29/2017 Session #:: 25 - Pablo went back to work - Stages of Change Stages of Change:: Action - Exercise Prescription Mode:: Treadmill, Rower, Airdyne, NuStep Frequency (x/week): 3 Duration:: 30 METs: 6.3 Target Heart Rate:: 120-128 Max HR 136 - Hypertension Do any of the following apply?: Yes Resting Blood Pressure:: 110/70 Peak Exercise Blood Pressure:: 148/80 - Intervention Home Exercise/Activity Goal:: Sitting Time <3 hrs/day - Education Goal Progress: Goal Met - Exercise Program Goals Exercise Program Goals: Aerobic Activity >30 min, B/P <140/90 Nutrition - Initial Assessment - Program Goals Nutrition Program Goals: LDL <70. Total Cholesterol <200. HDL >45. Triglycerides <150. HgbA1C <7%. BMI <25 - Stages of Change Stages of Change:: Action - Lipids Total Cholesterol (mg/dL) Goal = less than 200 mg/dL: 152 HDL Cholesterol (mg/dL) Goal = less than 45 mg/dL: 32 LDL Cholesterol (mg/dL) Goal = less than 70 mg/dL: 64 Triglycerides (mg/dL) Goal = less than 150 mg/dL: 106 - Diabetes Diabetes:: No Non-Insulin Dependent?: No - Weight Management Body Fat %:: 28.41 Total Score:: 2 - Intervention Referral to dietitian:: No Referral to Diabetic Clinic:: No Will attend diet classes:: Yes - Education Gave educational materials for:: Healthy eating Nutrition - 30-Day Assessment - Program Goals Nutrition Program Goals: LDL <70. Total Cholesterol <200. HDL >45. Triglycerides <150. HgbA1C <7%. BMI <25 - Stages of Change Stages of Change:: Action - Lipids Has the patient seen the dietitian?: No - Diabetes Diabetes:: No Non-Insulin Dependent?: No - Intervention Referral to dietitian:: No Referral to Diabetic Clinic:: No Will attend diet classes:: Yes - Education Attended class for:: Healthy eating Nutrition - 60-Day Assessment - Program Goals Nutrition Program Goals: LDL <70. Total Cholesterol <200. HDL >45. Triglycerides <150. HgbA1C <7%. BMI <25 - Visit Date of Eval: 06/12/17 - Stages of Change Stages of Change:: Action - Lipids Has the patient seen the dietitian?: No - Diabetes Diabetes:: No Non-Insulin Dependent?: No - Intervention Referral to dietitian:: No Referral to Diabetic Clinic:: No Will attend diet classes:: Yes - Education Attended class for:: Healthy eating Nutrition - 90-Day Assessment - Program Goals Nutrition Program Goals: LDL <70. Total Cholesterol <200. HDL >45. Triglycerides <150. HgbA1C <7%. BMI <25 - Visit Date of Eval: 06/12/17 - Stages of Change Stages of Change:: Action - Lipids Has the patient seen the dietitian?: No - Diabetes Diabetes:: No Non-Insulin Dependent?: No - Intervention Referral to dietitian:: No Referral to Diabetic Clinic:: No Will attend diet classes:: Yes - Education Attended class for:: Healthy eating Nutrition - Final Assessment - Program Goals Nutrition Program Goals: LDL <70. Total Cholesterol <200. HDL >45. Triglycerides <150. HgbA1C <7%. BMI <25 - Visit Date of Eval: 07/09/17 - 06/04/2017-06/29/2017 - Stages of Change Stages of Change:: Action - Diabetes Diabetes:: No Non-Insulin Dependent?: No - Weight Management Weight:: 78.471 kg Body Fat %:: 28.41 Total Score:: 2 - Intervention Referral to dietitian:: No Referral to Diabetic Clinic:: No Will attend diet classes:: Yes - Education Education Goal Reached?: Yes Tobacco - Initial Assessment - Program Goals Tobacco Program Goals: Complete smoking cessation. Attend education classes. Improve Knowledge Test score - Stage of Change Stages of Change:: Action - Learning Barriers Learning Barriers: Vision - reading glasses, Ready to Learn Total Score:: 9 - Family Support Do you have family support?: Yes - Tobacco Use Do you use smokeless tobacco?: No - Intervention Smoking Cessation Referral:: No Individual Education/Counseling:: No Education Schedule Given:: Yes - Education Gave educational material for:: Coronary artery disease, Risk factors, Sexuality , Medical compliance, Cardiac A&P, Angina signs & symptoms Tobacco - 30-Day Assessment - Program Goals Tobacco Program Goals: Complete smoking cessation. Attend education classes. Improve Knowledge Test score - Stage of Change Stages of Change:: Action - Learning Barriers Learning Barriers: Participates in education - Family Support Do you have family support?: Yes - Tobacco Use Tobacco Use: Non-smoker Do you use smokeless tobacco?: No - Intervention Smoking Cessation Referral:: No Individual Education/Counseling:: No Education Schedule Given:: Yes - Education Attended class for:: Coronary artery disease, Risk factors, Sexuality, Medical compliance, Cardiac A&P, Angina signs & symptoms Tobacco - 60-Day Assessment - Program Goals Tobacco Program Goals: Complete smoking cessation. Attend education classes. Improve Knowledge Test score - Stage of Change Stages of Change:: Action - Learning Barriers Learning Barriers: Participates in education - Family Support Do you have family support?: Yes - Tobacco Use Tobacco Use: Non-smoker Do you use smokeless tobacco?: No - Intervention Smoking Cessation Referral:: No Individual Education/Counseling:: No Education Schedule Given:: Yes - Education Attended class for:: Coronary artery disease, Risk factors, Sexuality, Medical compliance, Cardiac A&P, Angina signs & symptoms Tobacco - 90-Day Assessment - Program Goals Tobacco Program Goals: Complete smoking cessation. Attend education classes. Improve Knowledge Test score - Stage of Change Stages of Change:: Action - Learning Barriers Learning Barriers: Participates in education - Family Support Do you have family support?: Yes - Tobacco Use Tobacco Use: Non-smoker Do you use smokeless tobacco?: No - Intervention Smoking Cessation Referral:: No Individual Education/Counseling:: No Education Schedule Given:: Yes - Education Attended class for:: Coronary artery disease, Risk factors, Sexuality, Medical compliance, Cardiac A&P, Angina signs & symptoms Tobacco - Final Assessment - Program Goals Tobacco Program Goals: Complete smoking cessation. Attend education classes. Improve Knowledge Test score - Stage of Change Stages of Change:: Action - Learning Barriers Cardiac Knowledge Test Score:: 9 - Family Support Do you have family support?: Yes - Tobacco Use Tobacco Use: Non-smoker Do you use smokeless tobacco?: No - Intervention Smoking Cessation Referral:: No Individual Education/Counseling:: No Education Schedule Given:: Yes - Education Education Goal Reached?: Yes Psychosocial - Initial Assess - Target Goals Target Goals: Assess presence or absence of depression. Using a valid screening tool, maximizes coping skills. Positive support system - Stages of Change Stages of Change:: Action - Psychosocial Test Tool Used:: HANDS Depression Questionnaire Self-Efficacy Score:: 9 - Intervention PS - Interventions: Yes Attend Stress Management Classes, Yes Uses Stress Management Skills, No Referral to Mental Health, No Referral to [facility] Case Management, No Referral to Physician - Patient/Program Goal Preventative Medication(s):: Aspirin, Clopidogrel, Statin/lipid - Assistive Devices Assistive Devices:: None Fall Risk Assessed:: Yes Psychosocial - 30-Day Assess - Target Goals Target Goals: Assess presence or absence of depression. Using a valid screening tool, maximizes coping skills. Positive support system - Stages of Change Stages of Change:: Action - Psychosocial Test Tool Used:: HANDS Depression Questionnaire Self-Efficacy Score:: 9 - Patient/Program Goal Preventative Medication(s):: Aspirin, Clopidogrel, Statin/lipid - Assistive Devices Assistive Devices:: None Fall Risk Assessed:: Yes Psychosocial - 60-Day Assess - Target Goals Target Goals: Assess presence or absence of depression. Using a valid screening tool, maximizes coping skills. Positive support system - Stages of Change Stages of Change:: Action - Psychosocial Test Tool Used:: HANDS Depression Questionnaire Self-Efficacy Score:: 9 - Patient/Program Goal Preventative Medication(s):: Aspirin, Clopidogrel, Statin/lipid - Assistive Devices Assistive Devices:: None Fall Risk Assessed:: Yes Psychosocial - 90-Day Assess - Target Goals Target Goals: Assess presence or absence of depression. Using a valid screening tool, maximizes coping skills. Positive support system - Stages of Change Stages of Change:: Action - Psychosocial Test Tool Used:: HANDS Depression Questionnaire Self-Efficacy Score:: 9 - Patient/Program Goal Preventative Medication(s):: Aspirin, Clopidogrel, Statin/lipid - Assistive Devices Assistive Devices:: None Fall Risk Assessed:: Yes Psychosocial - Final Assessmen - Target Goals Target Goals: Assess presence or absence of depression. Using a valid screening tool, maximizes coping skills. Positive support system - Stages of Change Stages of Change:: Action - Psychosocial Test Tool Used:: HANDS Depression Questionnaire Self-Efficacy Score:: 9 - Intervention PS - Interventions: Yes Attend Stress Management Classes, Yes Uses Stress Management Skills, No Referral to Mental Health, No Referral to [facility] Case Management, No Referral to Physician - Patient/Program Goal Preventative Medication(s):: Aspirin, Clopidogrel, Statin/lipid - Assistive Devices Assistive Devices:: None Fall Risk Assessed:: Yes Patient Health Questionnaire Discharge Assessment 1. Little interest or pleasure in doing things: Not at all 2. Feeling down, depressed, or hopeless: Not at all 3. Trouble falling or staying asleep, or sleeping too much: Not at all 4. Feeling tired or having little energy: Not at all 5. Poor appetite or overeating: Not at all 6. Feeling bad about yourself -- or that you are a failure or have let yourself or your family down: Not at all 7. Trouble concentrating on things, such as reading the newspaper or watching television: Not at all 8. Moving or speaking so slowly that other people could have noticed. Or the opposite - being so fidgety or restless that you have been moving around a lot more than usual: Not at all 9. Thoughts that you would be better off , or of hurting yourself in some way: Not at all How difficult have these problems made it for you to do your work, take care of things at home, or get along with other people?: Not difficult at all Total Score: 0 Self-Efficacy Discharge Assessment We would like to know how confident you are in doing certain activities. Please select your confidence level for:: Select your confidence level for the following using the scale 1-10 where 1 is not at all confident and 10 is totally confident. Your score is the average of all 6 responses. Fatigue: How confident are you that you can keep the fatigue caused by your disease from interfering with the things you want to do? Select Number: 10 Physical Discomfort or Pain: How confident are you that you can keep the physical discomfort or pain of your disease from interfering with the things you want to do? Select Number: 10 Emotional Distress: How confident are you that you can keep the emotional distress caused by your disease from interfering with the things you want to do? Select Number: 10 Other Symptoms or Health Problems: How confident are you that you can keep other symptoms or health problems from interfering with the things you want to do? Select Number: 10 Different Tasks and Activities: How confident are you that you can do the different tasks and activities needed to manage your health condition so as to reduce your need to see a doctor? Select Number: 10 Medication: How confident are you that you can do things other than just taking medication to reduce how much your illness affects your everyday life? Select Number: 10 Total Score:: 10 Cardiac Rehabilitation Goals - Cardiac Rehab Goals Cardiac Rehabilitation Goals: 1. Maintain the individual as the primary focus of care. 2. To improve the patient's quality of life. 3. Identification of cardiac risk factors and provide cardiac risk factor management. 4. Enhance the psychosocial status of the patient. 5. Reconditioning enough to allow the patient to resume customary activities. 6. Control symptoms of cardiac disease - Scale Scale for measuring improvement of personal goals: Enter appropriate number in Comments. 2 = Unchanged. 3 = Slightly Better. 4 = Moderate Improvement. 5 = Met my Goal Discharge Assessment Personal Goals: Discharge Reassessment: Participate in home exercise program, Get back to work, or to resume activities faster, Improve diet and eating habits (eat healthier)
== END 2017-07-02 10:37 | disposition home or self-care (01) ==
LOC: CR 10:15
PROVIDERS: Family Provider Family Medicine; PCP Family Medicine; Visit Provider Internal Medicine Cardiovascular Disease
DX: Z95.5 Presence of coronary angioplasty implant and graft (principal)
CPT/HCPCS: 93798

== ENCOUNTER 2017-12-18 16:17 | Emergency (ER) | payer OTHER, SELFPAY ==
[2017-12-18 16:19] VITALS: BP 130/74; PULSE 68; RESP 18; TEMP 36.2; O2SAT 99; BMI 26.6
== END 2017-12-18 17:18 | disposition left against medical advice (07) ==
LOC: ED 17:15
PROVIDERS: Emergency Provider Emergency Medicine; Family Provider Family Medicine; PCP Family Medicine
DX: T14.8XXA Other injury of unspecified body region, initial encounter (principal); Z53.21 Procedure and treatment not carried out due to patient leaving prior to being seen by health care provider

== ENCOUNTER 2023-03-08 01:18 | Emergency (ER) | payer MEDICARE, SELFPAY ==
[2023-03-08 01:19] VITALS: BP 174/96; PULSE 78; RESP 18; TEMP 35.5; O2SAT 97; BMI 32.4
--- NOTE | 2023-03-08 01:41 | RAD_ITS ---
EXAM: XR CHEST, 2 VIEWS CLINICAL INDICATION: cough cough TECHNIQUE: Frontal and lateral views of the chest. COMPARISON: No relevant prior studies available. FINDINGS: LUNGS AND PLEURAL SPACES: There is mild atelectasis in the lower lung paiz. There are no demonstrated pulmonary consolidations. No pneumothorax. No effusion. HEART: Unremarkable. Cardiac silhouette not enlarged. MEDIASTINUM: Central airways and mediastinal contour are unremarkable. BONES/JOINTS: Unremarkable. No acute fracture. SOFT TISSUES: Unremarkable. RAD/Chest PA and Lateral IMPRESSION: Mild atelectasis in lower lung paiz. No demonstrated pulmonary airspace infiltrates. Electronically Signed: Rogelio Nguyen MD at 2:35 EST Reading Location ID and State: [facility] / [place] , Service support ,
[2023-03-08] MEDS: predniSONE 20 MG Tablet 60 MG PO (01:43)
[2023-03-08 01:55] VITALS: PULSE 91; RESP 18
[2023-03-08] MEDS: Albuterol 2.5 MG/3 ML VIAL.NEB. INHALATION (01:55)
[2023-03-08] MEDS: Ipratropium/Albuterol Sulfate 3 ML AMPUL.NEB INHALATION ×2 (01:55→03:03)
--- NOTE | 2023-03-08 02:16 | CPS ---
x1 Albuterol given to pt. in ER as well
--- NOTE | 2023-03-08 03:23 | CPS ---
[0303] Pre-HR = 90, RR = 18 with slightly diminished breath sounds & LLL crackles Post-HR = 108, RR = 18 with clearer breath sounds; LLL crackles
--- NOTE | 2023-03-08 03:29 | EX.ED.DYSGE1 ---
HPI History of Present Illness Chief Complaint: Shortness of Breath Informant: patient Narrative Narrative: Patient is a 67-year-old male with reported past medical history of hyperlipidemia previous NH and COVID roughly 1 month ago. 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 He states 1 month ago he had similar symptoms and was diagnosed with COVID. States he felt he had better but then was in another hospital visiting a feeling member and then developed congestion and cough. He states that congestion and cough is been present for approximately 1 week and he is having difficulty sleeping secondary to it. He states that this evening/morning he awoke with congestion and cough which was not improving and felt like there may be potentially developing pneumonia and therefore comes to the hospital for evaluation [facility] Medical History (Updated 03/08/23 @ 05:[address] Compa Duval, DO) COVID-19 Hyperlipemia Myocardial infarction (~2017) Home Medications aspirin 81 mg chewable tablet 81 mg PO DAILY@0800 04/25/17 [History Last Taken Unknown] atorvastatin 80 mg tablet 80 mg PO QHS 04/25/17 [History Last Taken Unknown] carvedilol 12.5 mg tablet 12.5 mg PO BID 04/25/17 [History Last Taken Unknown] clopidogrel 75 mg tablet 75 mg PO DAILY 04/25/17 [History Last Taken Unknown] lisinopril 10 mg tablet 10 mg PO DAILY 04/25/17 [History Last Taken Unknown] nitroglycerin 0.4 mg sublingual tablet (Nitrostat) 0.4 mg sublingual X1 chest pain 04/25/17 [History Last Taken Unknown] albuterol sulfate 90 mcg/actuation aerosol inhaler (Ventolin HFA) 1 - 2 puff inhalation Q4H PRN PRN Wheezing #1 device 03/08/23 [Rx Last Taken Unknown] hydrocodone-homatropine 5 mg-1.5 mg/5 mL oral syrup (Hycodan (with homatropine)) 5 ml PO 4X/DAY PRN PRN cough 7 days #140 mL 03/08/23 [Rx Last Taken Unknown] prednisone 20 mg tablet 40 mg (2 x 20 mg) PO DAILY 5 days #10 tabs 03/08/23 [Rx Last Taken Unknown] Allergy/AdvReac Type Severity Reaction Status Date / Time No Known Allergies Allergy Unverified 01/15/23 09:59 Surgical History Stented coronary artery Social History Smoking Status: Never smoker ROS ROS ED Constitutional Constitutional ED: Denies chills or fever(s) ENT ENT ED: Reports rhinorrhea and sore throat Cardiovascular Cardiovascular: Denies chest pain Respiratory/Chest Respiratory/Chest: Reports cough and dyspnea Gastrointestinal Gastrointestinal: Denies abdominal pain, diarrhea, nausea or vomiting Genitourinary Genitourinary ED: Denies dysuria Musculoskeletal Musculoskeletal: Reports myalgias Integumentary Denies rash Neurologic Neurologic: Denies headache(s) Hematologic/Lymphatic Hematologic/Lymphatic: Denies easy bleeding or easy bruising EXAM Physical Exam Const Vital Signs: 03/08/23 01:19 03/08/23 01:25 03/08/23 01:55 Temperature 96 F L Temperature Source Temporal Pulse Rate 78 91 Respiratory Rate 18 18 Respiratory Effort Short of Breath Respiratory Depth Normal Respiratory Pattern Normal Normal Blood Pressure 174/96 H Blood Pressure Mean 122 Pulse Ox 97 Oxygen Delivery Method Room Air Room Air 03/08/23 03:37 Temperature Temperature Source Pulse Rate 100 Respiratory Rate 16 Respiratory Effort Respiratory Depth Respiratory Pattern Blood Pressure 154/67 H Blood Pressure Mean 96 Pulse Ox 87 Oxygen Delivery Method Room Air Positive well nourished and well developed General Appearance ED: well developed HEENT HEENT Narrative: Cobblestoning is noted in the posterior pharynx consistent with sinus drainage No airway edema or compromise; no tongue or lip swelling Eyes PERRL and EOMs intact bilaterally General Eye ED: Negative for pale conjunctiva Neck supple and no JVD Chest Wall palpation of chest normal Resp Resp Narrative: Patient is tachypneic with slight accessory muscle use. Breath sounds are diminished throughout with diffuse expiratory wheeze and faint rhonchi noted in the bilateral lower lobes. Cardio regular rate and regular rhythm Rate: other Other Details: Heart is regular rate and rhythm without murmurs rubs or gallops Radial and carotid pulses are equal and symmetric GI normal to inspection, nondistended, normoactive bowel sounds, non-tender, non-distended and no masses Auscultation: normoactive bowel sounds Palpation: soft Extremity normal to inspection Extremity Narrative: Negative Homans' sign bilaterally Neuro oriented x3, CN's II-XII intact bilaterally and no sensory deficits noted Sensorium / Orientation: alert Motor Exam: strength 5/5 throughout Psych mental status grossly normal Skin no rashes or lesions noted MDM MDM MDM Narrative Medical decision making narrative: Patient presented to the ER satting in the mid 90s on room air. However he did have increased work of breathing and he reported congestion and cough. Differential diagnosis is for upper respiratory tract infection versus pleural effusion versus pneumonia. As patient is afebrile and satting in the mid 90s I do not feel there is need for laboratory studies. A chest x-ray was obtained to rule out pneumonia versus pneumothorax versus pleural effusion. Chest x-ray showed atelectasis consistent with physical exam the fact he is not taking deep breaths. Patient was given oral steroids as well as 2 DuoNeb and 1 albuterol breathing treatment. Following the medication he did have improvement of his breath sounds and sensation of shortness of breath. At this time the patient's had improvement in his physical exam and symptoms and is not in respiratory distress. Therefore at this time I do not feel there is need for admission and patient be discharged home with symptomatic care History & Record Review Discussion w/independent historian: Patient Radiography Diagnostic Testing: Clinical Impression(s) from Imaging Studies Chest X-Ray 03/08/23 01:41 IMPRESSION: Mild atelectasis in lower lung paiz. No demonstrated pulmonary airspace infiltrates. Electronically Signed: Rogelio Nguyen MD at 2:35 EST Reading Location ID and State: [facility] / [place] , Service support , Chest x-ray as interpreted by the emergency medicine physician reveals atelectasis without acute infiltrate pneumothorax pleural effusion or widening of the mediastinum Discharge Plan Triage Chief Complaint: Shortness of Breath ED Provider: Compa Duval Dx/Rx/DC Orders Clinical Impression: Viral upper respiratory tract infection with cough, Bronchospasm, Hyperlipidemia Instructions: ED Bronchospasm (Adult), ED URI, Viral W/ Wheezing (Adult) Prescriptions: New prednisone 20 mg tablet 40 mg PO DAILY 5 Days Qty: 10 0RF albuterol sulfate [Ventolin HFA] 90 mcg/actuation HFA aerosol inhaler 1 - 2 puff inhalation Q4H PRN PRN (Reason: Wheezing) Qty: 1 0RF hydrocodone-homatropine [Hycodan (with homatropine)] 5-1.5 mg/5 mL syrup 5 ml PO 4X/DAY PRN PRN (Reason: cough) 7 Days Qty: 140 0RF No Action atorvastatin 80 MG tablet 80 mg PO QHS carvedilol 12.5 MG tablet 12.5 mg PO BID Patient Comments: doesn't feel it is needed clopidogrel 75 MG tablet 75 mg PO DAILY lisinopril 10 MG tablet 10 mg PO DAILY Patient Comments: doesn't feel it is needed nitroglycerin [Nitrostat] 0.4 MG tablet, sublingual 0.4 mg sublingual X1 MDD 3 Patient Comments: SL 1 tab under the tongue every 5 minutes x 3. aspirin 81 MG tablet,chewable 81 mg PO DAILY@0800 Primary Care Provider: Care Physician,No Primary Referrals: Care Physician,No Primary [Primary Care Provider] - Charleen Campbell VP [employer] OF [employer], VP [employer]-C [Non-Staff] - Activity Restrictions/Additional Instructions: Your x-ray did not show any type of pneumonia or fluid buildup. Your lungs are very inflamed and therefore take the steroid as directed help control this and use the inhaler to help with spasm. If you develop a fever over 100.4 or feel you are worsening despite taking your medications please return for repeat evaluation Disposition Disposition: Home, Self Care Discharge Date/Time: 03/08/23 04:09
[2023-03-08] MEDS: guaiFENesin/Codeine 5 ML UDC 10 ML PO (03:31)
[2023-03-08 03:37] VITALS: BP 154/67; PULSE 100; RESP 16; O2SAT 87
== END 2023-03-08 04:09 | disposition home or self-care (01) ==
PROVIDERS: Emergency Provider Emergency Medicine; Visit Provider Emergency Medicine
DX: J06.9 Acute upper respiratory infection, unspecified (principal); E78.5 Hyperlipidemia, unspecified; J98.01 Acute bronchospasm; Z86.16 Personal history of COVID-19
CPT/HCPCS: 71046; 94640; 99283

== ENCOUNTER 2023-03-11 21:51 | Emergency (ER) | payer MEDICARE, SELFPAY ==
[2023-03-11 21:55] VITALS: BP 186/93; PULSE 94; RESP 18; TEMP 36.2; O2SAT 97; BMI 32.8
[2023-03-11 22:14] VITALS: O2SAT 95
--- NOTE | 2023-03-11 22:14 | EKG12_ITS ---
Test Reason : SOB Blood Pressure : / mmHG Vent. Rate : 084 BPM Atrial Rate : 084 BPM P-R Int : 154 ms QRS Dur : 126 ms QT Int : 408 ms P-R-T Axes : 053 -71 019 degrees QTc Int : 482 ms Normal sinus rhythm Left axis deviation Right bundle branch block Abnormal ECG Confirmed by NOE TRUJILLO, ELISEO ([id number]), newspaper editor SANDRA MONTALVO ([id number]) on 03/13/2023 10:42:09 AM Referred By: BB Confirmed By:ELISEO LIU MD
--- NOTE | 2023-03-11 22:15 | EDS_ITS ---
HPI History of Present Illness Chief Complaint: Shortness of Breath Informant: patient Onset/Context/Timing Onset: Weeks Context: gradual Timing: Intermittent Quality: Positive for Dyspnea on exertion and Wheezing Maximum Severity: Mild Worsened by: Exertion, Lying flat and Coughing Relieved by: Rest Associated Symptoms cough Chest Pain: Positive for None Narrative Narrative: 67-year-old male complaining shortness of breath for last 3 weeks. He does have a cardiac history of CAD with stent and on Plavix. No history of DVT or PE. No recent travel, surgery or immobilization. He said he was placed on prednisone for this which did help his symptoms he is now off the prednisone. He has had some intermittent wheezing. Denies any chest pain. No pleuritic chest pain. No leg pain or swelling. No hemoptysis. He said he had COVID about a month ago went away and about a week said he felt fine he was not having shortness of breath at that time. He was more fatigued. PE Risk Factors: Negative for Cancer, OCP + Smoking + > 35, Prior DVT or PE, Recent immobilization, Recent surgery or Recent travel Prior similar symptoms: Yes Recent Illness/Hospitalization: No PFSH PFS Medical History COVID-19 Hyperlipemia Myocardial infarction (~2017) Home Medications aspirin 81 mg chewable tablet 81 mg PO DAILY@0800 04/25/17 [History Last Taken Unknown] atorvastatin 80 mg tablet 80 mg PO QHS 04/25/17 [History Last Taken Unknown] carvedilol 12.5 mg tablet 12.5 mg PO BID 04/25/17 [History Last Taken Unknown] clopidogrel 75 mg tablet 75 mg PO DAILY 04/25/17 [History Last Taken Unknown] lisinopril 10 mg tablet 10 mg PO DAILY 04/25/17 [History Last Taken Unknown] nitroglycerin 0.4 mg sublingual tablet (Nitrostat) 0.4 mg sublingual X1 chest pain 04/25/17 [History Last Taken Unknown] albuterol sulfate 90 mcg/actuation aerosol inhaler (Ventolin HFA) 1 - 2 puff inhalation Q4H PRN PRN Wheezing #1 device 03/08/23 [Rx Last Taken Unknown] hydrocodone-homatropine 5 mg-1.5 mg/5 mL oral syrup (Hycodan (with homatropine)) 5 ml PO 4X/DAY PRN PRN cough 7 days #140 mL 03/08/23 [Rx Last Taken Unknown] prednisone 20 mg tablet 40 mg (2 x 20 mg) PO DAILY 5 days #10 tabs 03/08/23 [Rx Last Taken Unknown] Allergy/AdvReac Type Severity Reaction Status Date / Time No Known Allergies Allergy Verified 03/11/23 21:53 Surgical History Stented coronary artery Social History Smoking Status: Never smoker ROS ROS ED ROS Narrative . Wheezing. Shortness of breath. No chest pain. No fever. No hemoptysis. Nonproductive cough. Review of Systems ROS Unobtainable: Denies due to encephalopathy Constitutional Constitutional ED: Denies chills or fever(s) Eyes Eyes: Denies blurry vision ENT ENT ED: Denies ear pain Cardiovascular Cardiovascular: Denies chest pain, palpitations or racing heartbeat Respiratory/Chest Respiratory/Chest: Reports cough, dyspnea, dyspnea on exertion and other Details: Wheezing. ; Denies sputum Gastrointestinal Gastrointestinal: Denies constipation, diarrhea, melena, nausea or vomiting Genitourinary Genitourinary ED: Denies dysuria or hematuria Musculoskeletal Musculoskeletal: Denies arthralgias Integumentary Denies abscess Neurologic Neurologic: Denies headache(s) Psychiatric Psychiatric: Denies anxiety Endocrine Endocrinology: Denies cold intolerance Hematologic/Lymphatic Hematologic/Lymphatic: Denies easy bleeding or easy bruising Allergic/Immunologic Allergic/Immunologic ED: Denies mouth swelling, tongue swelling or urticaria EXAM Physical Exam Narrative Exam Narrative: 67-year-old male vital signs stable afebrile. Pulse ox 97% on room air no signs hypoxia. No distress. HEENT exam unremarkable. Moist with members. Neck nontender no JVD. No lymphadenopathy. Lungs few scattered expiratory wheezes. No rales or rhonchi. Equal symmetrical. Heart regular rhythm rate about 90 no murmur. Chest wall nontender. Abdomen soft nontender. Moving all 4 extremities. Equal symmetrical radial pulses. Calves are nontender without edema nor cords. Neurologically is awake and alert with no focal motor deficits. Const Vital Signs: 03/11/23 21:55 03/11/23 22:35 03/11/23 22:14 Temperature 97.1 F L Temperature Source Temporal Pulse Rate 94 85 Respiratory Rate 18 13 Respiratory Effort Respiratory Depth Respiratory Pattern Normal Blood Pressure 186/93 H Blood Pressure Mean 124 Pulse Ox 97 95 Oxygen Delivery Method Room Air Room Air 03/11/23 22:59 Temperature Temperature Source Pulse Rate Respiratory Rate Respiratory Effort Non-Labored Respiratory Depth Normal Respiratory Pattern Tachypnea Blood Pressure Blood Pressure Mean Pulse Ox Oxygen Delivery Method Room Air Positive well nourished and well developed; Negative for cachectic, contractures or unkempt General Appearance ED: well developed and NAD; Negative for unkempt, cachectic, contractures or pallor Nutritional Appearance: Negative for cachectic HEENT Reports moist mucous membranes atraumatic; Negative for trauma or tenderness Eyes PERRL and EOMs intact bilaterally General Eye ED: Negative for pale conjunctiva or scleral icterus Neck no lymphadenopathy, supple, no meningeal signs and no JVD General: Negative for tenderness Lymph Lymphatic: Negative for other Resp normal respiratory effort and No clear to auscultation bilaterally Auscultation: wheezes Cardio regular rate, regular rhythm, S1 normal heart sound, S2 normal heart sound and no murmurs Rate: Negative for bradycardia or tachycardic Rhythm: Negative for abnormal rhythm GI non-tender, non-distended and no masses Inspection: Negative for other Auscultation: normoactive bowel sounds Palpation: soft; Negative for tender or guarding Bladder / Kidney Exam: No other Back/Spine no CVA tenderness and normal to inspection General Back: Negative for CVA tenderness Extremity normal to inspection General Extremety ED: Negative for edema or tenderness General Extremity: Negative for edema Neuro oriented x3, CN's II-XII intact bilaterally and no sensory deficits noted Sensorium / Orientation: alert, oriented to person, oriented to place and oriented to time; Negative for orientation impaired, confused, lethargic or stuporous Speech: speech normal Motor Exam: strength 5/5 throughout Psych mental status grossly normal Appearance: Negative for unkempt Attitude: No agitated Mood & Affect: Negative for depressed Thought Process: normal thought process Skin no wounds and skin turgor normal General Skin Exam: Negative for jaundice or pallor Lesions: no lesions Rashes: no rashes MDM MDM MDM Narrative Medical decision making narrative: 67-year-old male with shortness of breath or wheezing. I suspect this is secondary bronchospasm. Will undergo cardiac workup with a chest x-ray and labs. He will be treated with DuoNeb aerosol and prednisone to see if he improves. He has no significant risk factors or history of DVT or PE. No physical findings of that. No physical findings of pulmonary edema. Repeat exam patient is doing well at 11:30 PM. Feels better after his aerosol treatment steroids. He did have an inhaler called and when she is picked up. He also has steroids at home. He will continue at 40 mg a day for a week. Uses inhaler as needed. He is getting a new primary care physician on March 30 and watch with no follow-up with them or return if worse. I do not think he needs any further testing today. History & Record Review Discussion w/independent historian: Patient Additional record(s) reviewed:: Prior inpatient record, Prior outpatient record, Prior ED visit and Prior labs Lab Data Attestation: I reviewed the patient's lab results. Lab results narrative: BC is unremarkable. White count of 7. H&H 13 and 40. Platelets 251. Electrolytes show a gap of 5. BUN and creatinine are 31 and 1.35. Glucose 98. Troponin is normal at 33. No old labs available for comparison. Patient refuses chest x-ray. States he had 1 done on that was unremarkable. Did review the chest x-ray. It was from 1122. He had atelectasis. Labs: Laboratory Results - last 24 hr 03/11/23 22:30 WBC 7.6 RBC 4.33 L Hgb 13.1 Hct 40.7 MCV 94.0 MCH 30.3 MCHC 32.2 RDW Std Deviation 46.0 H RDW Coeff of [place] 13.5 Plt Count 251 MPV 9.6 Immature Gran % (Auto) 1.200 H Neut % (Auto) 56.7 Lymph % (Auto) 28.1 [place] % (Auto) 7.8 Eos % (Auto) 5.7 H Baso % (Auto) 0.5 Absolute Neuts (auto) 4.3 Absolute Lymphs (auto) 2.13 Nucleated RBC % 0 Sodium 140 Potassium 4.1 Chloride 108 H Carbon Dioxide 27.0 Anion Gap 5 BUN 31 H Creatinine 1.35 H Estim Creat Clear Calc 49.23 Est GFR (MDRD) Af Amer 68 Est GFR (MDRD) Non-Af 56 L BUN/Creatinine Ratio 23.0 H Glucose 98 Calcium 7.9 L Troponin I High Sens 33 Radiography Chest X-Ray - ED: 1 View and Read by ED Physician Rhythm Strip Rhythm Strip: Sinus Rhythm Rate: 84 Ectopy: None EKG Initial EKG: Attestation: I personally reviewed and interpreted this EKG as follows: Interpretation: Sinus Rhythm and No Acute Injury Pattern Comments: Normal sinus rhythm rate of 84 no acute signs of NC or ischemia. Right bundle branch block. Prior EKG tracings: available for review Prior: Unchanged Discharge Plan Triage Chief Complaint: Shortness of Breath ED Provider: Calin Pratt Dx/Rx/DC Orders Clinical Impression: Viral upper respiratory tract infection with cough, Bronchospasm, History of hypertension, History of coronary artery disease Instructions: ED Understanding Hypersensitivity Pneumonitis, ED Bronchospasm (Adult) Prescriptions: No Action atorvastatin 80 MG tablet 80 mg PO QHS carvedilol 12.5 MG tablet 12.5 mg PO BID Patient Comments: doesn't feel it is needed clopidogrel 75 MG tablet 75 mg PO DAILY lisinopril 10 MG tablet 10 mg PO DAILY Patient Comments: doesn't feel it is needed nitroglycerin [Nitrostat] 0.4 MG tablet, sublingual 0.4 mg sublingual X1 MDD 3 Patient Comments: SL 1 tab under the tongue every 5 minutes x 3. aspirin 81 MG tablet,chewable 81 mg PO DAILY@0800 prednisone 20 mg tablet 40 mg PO DAILY 5 Days Qty: 10 0RF albuterol sulfate [Ventolin HFA] 90 mcg/actuation HFA aerosol inhaler 1 - 2 puff inhalation Q4H PRN PRN (Reason: Wheezing) Qty: 1 0RF hydrocodone-homatropine [Hycodan (with homatropine)] 5-1.5 mg/5 mL syrup 5 ml PO 4X/DAY PRN PRN (Reason: cough) 7 Days Qty: 140 0RF Primary Care Provider: Care Physician,No Primary Referrals: Care Physician,No Primary [Primary Care Provider] - Activity Restrictions/Additional Instructions: Follow-up with your new doctor on March 30. Prednisone 40 mg a day for the next 7 days. Use your inhaler 2 puffs as needed. Return if feeling worse. Disposition Disposition: Home, Self Care
[2023-03-11] MEDS: Ipratropium/Albuterol Sulfate 3 ML AMPUL.NEB INHALATION (22:32)
[2023-03-11 22:35] VITALS: PULSE 85; RESP 13
[2023-03-11 22:43] LABS: Absolute Lymphocyte Count 2.13 X10^3/uL (0.83-4.51); Absolute Neutrophil Count 4.3 X10^3/uL (2.0-7.7); Basophil# 0.04 X10^3/uL; Basophil% 0.5 % (0-1); Eosinophil# 0.43 X10^3/uL; Eosinophils% 5.7 % (0-5); Hematocrit 40.7 % (40-54); Hemoglobin 13.1 g/dL (13.0-16.5); Lymphocyte # 2.13 X10^3/ul (0.83-4.51); Lymphocyte % 28.1 % (19-41); Mean Corp Hgb Conc 32.2 g/dL (32-36); Mean Corpuscular Hgb 30.3 pg (27.0-32.0); Mean Platelet Vol. 9.6 fl (6.2-12.0); Monocyte# 0.59 X10^3/uL; Monocyte% 7.8 % (0-10); NRBC Flagged by Analyzer 0 % (0-5); Neutrophil % 56.7 % (47-70); Platelet Count 251 K/mm3 (150-450); RBC Distribution Width CV 13.5 % (11.6-14.6); Red Blood Count 4.33 M/mm3 (4.6-6.2); White Blood Count 7.6 K/mm3 (4.4-11.0)
[2023-03-11 22:54] LABS: Anion Gap 5 (5-15); BUN 31 mg/dL (7-18); Calcium,Total 7.9 mg/dL (8.5-10.1); Chloride 108 mmol/L (98-107); Creatinine, Serum 1.35 mg/dL (0.70-1.30); EST Glomerular Filtration Rate 56 mL/min (>60); Est Glom Filt Rate - Afr Amer 68 mL/min (>60); Estimated Creatinine Clearance 49.23 ml/min; Glucose 98 mg/dL (74-106); Potassium 4.1 mmol/L (3.5-5.1); Sodium Level 140 mmol/L (136-145); Troponin-I HS 33 pg/mL (3.0-78.0)
[2023-03-11] MEDS: predniSONE 20 MG Tablet 60 MG PO (22:56)
[2023-03-11 22:59] VITALS: O2SAT 93
[2023-03-11 23:43] VITALS: BP 147/93; PULSE 83; RESP 20; RESP 22; O2SAT 95; O2SAT 97
== END 2023-03-11 23:44 | disposition home or self-care (01) ==
PROVIDERS: Emergency Provider Emergency Medicine; Visit Provider Emergency Medicine
DX: J06.9 Acute upper respiratory infection, unspecified (principal); J98.01 Acute bronchospasm; I25.10 Atherosclerotic heart disease of native coronary artery without angina pectoris; R06.02 Shortness of breath; I10 Essential (primary) hypertension; E78.5 Hyperlipidemia, unspecified; Z79.02 Long term (current) use of antithrombotics/antiplatelets; Z79.82 Long term (current) use of aspirin; Z79.899 Other long term (current) drug therapy; Z95.5 Presence of coronary angioplasty implant and graft; Z86.16 Personal history of COVID-19
CPT/HCPCS: 80048; 84484; 85025; 93005; 94640; 99284; A4216

== ENCOUNTER 2023-07-24 14:30 | Outpatient (RCR) | payer MEDICARE, SELFPAY ==
--- NOTE | 2023-06-11 12:39 | HP.PTEVAL_ITS ---
Patient's Visit Information Visit Information Visit Information: ROGELIO EMMANUEL is a 68 year old M referred to Physical Therapy by Dr. Arpita Mcdaniel MD with a diagnosis of CVA. Date of Evaluation: 06/11/23 Physical Therapist: Nura Mcgill, JEREMYT, OCS, CSCS Visit Plan Frequency: 2x /Week Duration: 4 Weeks Plan: 2x/week for 4 weeks for... 1. teach LE/postural core and UE strength using bands and db and body weight and work to I for HEP.With pics. 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 In hospital 05/21-05/24. CATscan and MRA and found 2 strokes. Had heart checkd with EKG and found declining function to20% EF. Will have heart monitor 06/17. Is on warfarin now. Not driving. Not noticing any balance or [id number] or mobility deficits. just memory and finding the right words. Retired printing. Sleeping OK. Lives with in two story house. Steps are nor problem and has railing. No falls. Basic ADLS. dress, bathroom, shower all normal. Hobbies: None. Crossword and a couplacres, slower this time of year. has bike and rwowing machine but got covid in december adn now SOB whcih they are lo oking into. No dizzyness lately. No neuropathy. has dumbbells at home and wants to learn to use them. Objective Objective: Walks into PT without gait deviations or pain, I. 600 feet today and no SOB or fatigue noted. Transfers bed and chair I. Squats and toe walk I. Steps reciprocally without rail up and down. Good balance and funcitonal mobility scores. LE strength is 4/5 in hips and knee and ankles except for hip rotations which are 3+. core strength 3+ flex and ext UE strength 4-. coordination to reciprocal toe adn heel tap is good and heel to benedict test is good. Sensation to gross light touch in LE is normal reflexes 1/3 patella adn achilles Balance/Special Test Scores Functional Gait Assessment Score: 30 % Disability: 0 CATSIB Score (Max score 120 seconds): 120 Lower Extremity Functional Score: 46 TUG Test Time Seconds: 6 30 Second Chair Rise Test Seconds: 14 Goals Goal 1:: I appropriate HEP for LE, posture, core and compliant at home Goal Time Frame: 2-4 Weeks Rehabilitation Potential Physical Therapy Diagnosis: weakness from stroke and sedentarism effecting health and function Rehabilitation Potential: Good Anticipated Interventions Patient/Client Instruction: Educate patient on: Condition and Plan of Care For the Purpose of:: To improve muscle performance and motor function and To increase tolerance to activity/condition/position Therapeutic Exercise to Include: Strength training For the Purpose of:: To improve muscle performance and motor function and To increase tolerance to activity/condition/position Text: Thank you for the opportunity to evaluate your patient. For Medicare and Medicare HMO plans, please review the plan of care and approve it. It will need to be FAXED BACK to us at [phone] for Medicare purposes. For Medicare only, by signing this I certify the plan of care. Please let me know if there are questions or concerns regarding this plan of care. Physician Signature: Date:
--- NOTE | 2023-06-11 13:56 | HP.SP.EVAL ---
Visit History Visit Info Date of Eval: 06/11/23 Visit: 1 Director [facility]: MAURIZIO History Attending Doctor: Referring Doctor: Reason for Referral: STROKE. RX HERE Medical Diagnosis: cva Date of Onset of Diagnosis: 05/21/23 Previous speech therapy: Yes Results: Pablo is a 68 year old male who was seen at for a speech and language evaluation s/p a cva on May 21. Pt's was present for the evaluation and helped provided history information. Pt was treated at [facility] for 4 days then released home. Pt has been working with his who has experience working with their son who was a tbi. 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 His highest level of education is a hs school education. Pt had 3 children, but only 2 are living (one son & one daughter). Pt saw tx in the hospital from speech. Pt's brain imaging showed a new stroke, but also past damage to the back of his brain, but they were unsure of when this happened (could have been during childhood). 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 Per pt's , he was always stoic, but he has been talking less at home & at yazdanism than before Objective Cog/Ling/Com Conversational Tasks Conversational Tasks: Mild Comments: Mild word finding issues noted during the evaluation. At times, pt had difficulty answering questions. CLQT CLQT CLQT Administered: Yes CLQT: Cognitive Linguistic Quick Test (CLQT) is a criterion - referenced assessment designed for adults between the ages of 18 and 89 with known or suspected neurological dysfuntions. The CLQT is to assess strength and weaknesses in five cognitive domains. Severity ratings are within normal limits, mild, moderate, severe deficits. The subtests are as follows: Date: 06/11/23 Attention Attention: WNL Memory Memory: Moderate Executive Functions Executive Functions: WNL Language Language: Mild Visuospatial Skills Visuospatial Skills: WNL Composite Severity Rating Composite Severity Rating: Mild Clock Drawing Severity Rating Clock Drawing Severity Rating: WNL CLQT Comments Performance: -: The main area of difficulty was story retell. Pt scored a 2 - the cut off for WNL was a 6. Pt also confused the hour & minute hands on the clock drawing. Reference: Neuro-QoL instrument HDQLIFE - Speech Difficulties In the past 7 days. It was difficult for other people to understand me.: Sometimes Is was difficult to speak clearly?: Sometimes In the past 7 days.. How often did you limit your social activites because you had difficulty speaking?: Often In the past 7 days... I had trouble speaking.: Quite a bit I was frustrated by my speech difficulties.: Somewhat How much DIFFICULTY do you have... ...saying what you want to say?: Some difficulty Score HDQLIFE Speech Difficulties Raw Score: 20 HDQLIFE Speech Difficulties T - Score: 60 Radiation Oncology Patient Plan Plan Plan: Will recommend Pt for weekly outpatient speech therapy intervention address mild to moderate expressive and receptive aphasia and cognition deficits. Pt would benefit from verbal and visual modeling, verbal/visual and tactile cuing, repeated practice, memory strategies, circumlocution training, and immediate feedback to improve language skills. Without skilled intervention Pt is at risk for difficulty communicating basic, medical, emergent, social wants & needs, and interacting with family/friends at home, during social interactions, and at work. Recommendations MBS: No Treatment Warranted: Yes Treatment Warranted: Receptive/ Expressive Language and Cognition Progress Prognosis: Excellent Frequency Frequency: 1-2x /Week Duration: 2-4 Months Goals that are Established Determination:: Goals will be added/modified as deemed necessary and appropriate. Therapy will be discontinued when results of re-evaluation indicate therapy is no longer needed or lack of progress has been documented. Goal #1-5 Goal #1: Pt independently will complete complex problem solving, reasoning, and executive function tasks including but not limited to functional ADL (i.e. managing finances, safety awareness, paying bills, medication management, meal planning, using cellphone) with 90% acc during 3 sessions. Goal #2: Pt will demonstrate the use of word finding strategies to complete basic to complex confrontation, convergent and divergent naming tasks with 90% acc independently across 3 measured opportunities to improve word retrieval. Goal #3: Pt will complete basic to complex listening comprehension tasks to improve his receptive language skills with 90% acc independently across 3 measured opportunities Goal #4: Pt will participate in an ongoing evaluation of his speech, language and cognitive skills to determine appropriate goals and measure progress Education Patient has Indicated that the Following Identified Educational Needs: None The Patient has indicated that they have no educational or learning abilities that may effect their care.: Yes Patient Instruction Patient Education: Diagnosis, Treatment Plan and Goals Person Taught: Patient and Family Teaching Method: Discussion Response to teaching: Verbalize understanding
--- NOTE | 2023-06-11 15:38 | HP.OTEVAL_ITS ---
Patient's Visit Information Visit Information Visit Information: ROGELIO EMMANUEL is a 68 year old M, referred to Occupational Therapy by Dr. Arpita Mcdaniel MD, with a diagnosis of CVA. Date of Evaluation: 06/11/23 Occupational Therapist: Noreen Rosenthal, AVANIR/Sera, CHT Subjective Subjective: This 68 year old male was seen for OT eval with dx of CVA. 2023. pt state he was having difficulty with names- when people were talking to him he could not focus on what they were saying. pt states and went to [facility]. Pt states he was in the hospital Sun-. pt states he is retired from [employer] in [employer]- states he worked for 40 years. 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 is with pt and does confirm his answers to the questions. ADLs Comments: lives with in two story home with 0 entry bedroom/master bathroom is on 2nd floor states he is dressing//bathing she has not noticing any memories issues with meal prep has son at [place] due to TBI they will drive 2 hours- states she noticed decrease reaction time prior to he ER visit. ROM ROM Comments: pt demo ROM of UB WNL denies any issue with lack of ROM or coordination Strength Shoulder: right 26# left 22# Elbow: biceps 36# left 34# Before School: right 50# left 60# Lateral Pinch: right 24# left 24# Tripod Pinch: right 20# left 20# Strength Comments: pt is left handed Sensation Sensation Comments: denies In-Hand Manipulation Finger to Palm Translation: Normal - Right and Normal - Left Palm to Finger Translation: Normal - Right and Normal - Left Quick DASH-Disab of Arm,Shoulder& Hand Quick DASH Score: 18.1800 Rehabilitation General Assessment: at this time cognitive deficits will be addressed by Speech Therapy- no deficits noted for UB ROM, strength or coordination liming his IND with bathing/dressing tasks. at this time pt and family voice concerns with more of pts cognitive status and would like to cont. with speech therapy pt and pts denies need for skilled OT services at this time. Visit Plan TEXT: Thank you for the opportunity to evaluate your patient. For Medicare and Medicare HMO plans, please review the plan of care and approve it. It will need to be FAXED BACK to us at [phone] for Medicare purposes. Please let me know if there are questions or concerns regarding this plan of care. Physician Signature: Date:
--- NOTE | 2023-07-06 10:36 | HP.PTDCSUM ---
Discharge Summary D/C summary: It has been my pleasure to treat ROGELIO EMMANUEL referred by Dr. Arpita Mcdaniel MD, with the diagnosis of CVA for a total of 7 visit(s). Discharge Date: 07/06/23 Please see the following information for a summary of their discharge status. Subjective Subjective: No confusion on HEP. Overall Improvement % Improvement: 100 Objective Objective/Function: Managed interventions well able to progress repetitions on many exercises without excessive fatigue. Does not require increased cues to correct technique. Progressing well over all. Goals Goal 1:: I appropriate HEP for LE, posture, core and compliant at home Goal Progress: Goal Met Plan Plan: Issue home based exercise program. 2x/week for 4 weeks for... 1. teach LE/postural core and UE strength using bands and db and body weight and work to I for HEP. With pics. D/C Information d/c sentence: If there are questions or concerns regarding this patient's physical therapy, please feel free to call me at [phone]. Thank you for the referral of this patient. Sincerely, Nura Mcgill, DPT, OCS, CSCS Balance/Gait/Functional tests Balance/Special Test Scores Functional Gait Assessment Score: 30 % Disability: 0 CATSIB Score (Max score 120 seconds): 120 Lower Extremity Functional Score: 80 TUG Test Time Seconds: 6 Tug Test: <10 sec.=free mobile 30 Second Chair Rise Test Seconds: 14 Improvement % Improvement: 100
== END 2023-07-24 19:00 | disposition home or self-care (01) ==
LOC: SP 14:30
PROVIDERS: Referring Provider Family Medicine; Visit Provider Family Medicine
DX: Z86.73 Personal history of transient ischemic attack (TIA), and cerebral infarction without residual deficits (principal); R47.01 Aphasia
CPT/HCPCS: 92507; 97110; 97161; 97166